=== PATIENT | male | born 2000 | race Caucasian/White ===

== ENCOUNTER 2019-07-21 06:56 | Emergency (ER) | payer OTHER, BC ==
[~2019-07-21] VITALS: Ht 188 cm; Wt 77.1 kg
[2019-07-21] MEDS ORDERED: TETANUS,DIPTH,PERTUSS P/F (BOOSTRIX) 0.5 ML VIAL IM ONE (07:15)
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
[2019-07-21] MEDS ORDERED: ACETAMINOPHEN 500 MG TAB (TYLENOL) PO ONE (08:00)
[2019-07-21] MEDS ORDERED: AMOX500C2 PO (08:13)
[2019-07-21] MEDS ORDERED: TRAM-42 PO (08:13)
[2019-07-21] MEDS ORDERED: CYCL10TA9 PO (08:13)
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
[2019-07-21 08:33] VITALS: BP 132/82
== END 2019-07-21 08:33 | disposition home or self-care (01) ==
LOC: ER 07:01
DX: T23.031A Burn of unspecified degree of multiple right fingers (nail), not including thumb, initial encounter (principal); M62.830 Muscle spasm of back; T31.0 Burns involving less than 10% of body surface; R40.2142 Coma scale, eyes open, spontaneous, at arrival to emergency department; R40.2252 Coma scale, best verbal response, oriented, at arrival to emergency department; R40.2362 Coma scale, best motor response, obeys commands, at arrival to emergency department; V48.5XXA Car driver injured in noncollision transport accident in traffic accident, initial encounter
CPT/HCPCS: 70450; 72125; 90471; 90715

== ENCOUNTER → 2022-02-17 | Outpatient (CLI) | payer SELFPAY ==
[~2022-02-17] MED LIST: AMOX500C2 PO; CYCL10TA25 PO; TRAM-42 PO
[2022-02-17 17:31] LABS: SEMEN VOLUME 2.8 ML (1.5-5.0)
== END ==
LOC: LAB 16:04
PROVIDERS: ATTEND Obstetrics & Gynecology
DX: N46.9 Male infertility, unspecified (principal)
CPT/HCPCS: 89320

== ENCOUNTER 2022-12-19 17:33 | Emergency (ER) | payer OTHER ==
[~2022-12-19] VITALS: Ht 190.5 cm; Wt 95.2 kg
[2022-12-19] MEDS ORDERED: HYDR28.480 TP (18:42)
[2022-12-19] MEDS ORDERED: CETI10TA17 PO (18:42)
--- NOTE | 2022-12-19 18:42 | ED Integumentary General ---
General Chief Complaint: Skin/Wound Problems Stated Complaint: RASH ON ARM Nursing Triage Note: PT AMB TO FT 1 WITH CC OF RASH X 7 DAYS. PT STATES WAS SEEN IN [place] "THE OTHER DAY" FOR URI. PT STATES "THEY DIDNT LOOK AT THE RASH". PT REPORTS DOES HAVE LOTS OF ALLERGIES. Source: patient Exam Limitations: no limitations History of Present Illness Date Seen by Provider: Dec 19, 2022 Time Seen by Provider: 18:40 Initial Comments Patient is a 21-year-old male who presents to the emergency department for evaluation of a rash that has been present for 7 days. Patient states he was seen yesterday in another ER for URI symptoms but they "did not look at the rash". Patient reports lots of allergies but is unable to provide any specific examples. States does itch. He has not taken any medications. Denies any new detergents, lotions, soaps, or other known possible allergens. Allergies and Home Medications Allergies Coded Allergies: No Known Drug Allergies (Unverified , 07/21/19) Patient Home Medication List Home Medication List Reviewed: Yes Amoxicillin (Amoxicillin) 500 Mg Capsule, 500 MG PO BID Prescribed by: TOAN JUAN on 07/21/19812 Cetirizine HCl (Cetirizine HCl) 10 Mg Tablet, 10 MG PO BID Prescribed by: Roland Phan on 12/19/221841 Cyclobenzaprine HCl (Cyclobenzaprine HCl) 10 Mg Tablet, 10 MG PO Q8H PRN for SPASMS Prescribed by: TOAN JUAN on 07/21/19812 Hydrocortisone/Aloe Vera (Hydrocortisone Plus 1% Cream) 1 % Cream..g., 28.4 GM TP BID Prescribed by: Roland Phan on 12/19/221841 Tramadol HCl (Ultram) 50 Mg Tablet, 50 MG PO Q6H PRN for BREAKTHROUGH PAIN Prescribed by: TOAN JUAN on 07/21/19812 Review of Systems Review of Systems Constitutional: no symptoms reported EENTM: no symptoms reported Respiratory: no symptoms reported Cardiovascular: no symptoms reported Gastrointestinal: no symptoms reported Genitourinary: no symptoms reported Musculoskeletal: no symptoms reported Skin: no symptoms reported Psychiatric/Neurological: No Symptoms Reported Endocrine: No Symptoms Reported Hematologic/Lymphatic: No Symptoms Reported Past Vfldeyr-Ohuylm-Mlcieu Hx Patient Social History Tobacco Use?: No Substance use?: No Alcohol Use?: Yes Alcohol type: Other Alcohol Frequency: Once in a while Seasonal Allergies Seasonal Allergies: No Past Medical History Surgeries: No Respiratory: No Cardiac: No Neurological: No Genitourinary: No Gastrointestinal: No Musculoskeletal: No Endocrine: No HEENT: No Cancer: No Psychosocial: No Integumentary: No Blood Disorders: No Physical Exam Vital Signs Vital Signs - First Documented 12/19/22 18:26 Temp 37.2 Pulse 72 Resp 20 B/P (MAP) 132/79 (96) Pulse Ox 100 O2 Delivery Room Air Capillary Refill : Less Than 3 Seconds General Appearance: WD/WN, no apparent distress HEENT: PERRL/EOMI, normal ENT inspection, TMs normal, pharynx normal Neck: non-tender, full range of motion, supple, normal inspection Cardiovascular: regular rate, rhythm Respiratory: chest non-tender, lungs clear, normal breath sounds, no respiratory distress, no accessory muscle use Gastrointestinal: normal bowel sounds, non tender, soft Extremities: normal range of motion, non-tender, normal inspection Neurologic/Psychiatric: no motor/sensory deficits, alert, normal mood/affect, oriented x 3 Skin: warm/dry, rash Progress/Results/Core Measures Results/Orders Vital Signs/I&O 12/19/22 12/19/22 18:26 18:51 Temp 37.2 Pulse 72 72 Resp 20 20 B/P (MAP) 132/79 (96) 132/79 Pulse Ox 100 100 O2 Delivery Room Air Room Air Blood Pressure Mean: 96 Progress Progress Note : Progress Note Patient is nontoxic and well-hydrated on exam. Vital signs are reassuring. Erythematous flat rash noted to the left forearm and right elbow. Rash is blanchable. No indication for further evaluation or diagnostic studies at this time. Patient will be discharged home with prescriptions for oral antihistamine and topical steroids. Follow-up with PCP. Return precautions for urgent symptomology discussed. Patient verbalized understanding. Departure Impression Primary Impression: Pruritic rash Disposition: HOME, SELF-CARE Condition: Stable Departure-Patient Inst. Decision time for Depature: 18:40 Referrals: CRISTAL BENNETT MD (PCP/Family) Primary Care Physician Patient Instructions: Skin Rash ED Scripts Hydrocortisone/Aloe Vera (Hydrocortisone Plus 1% Cream) 1 % Cream..g. 28.4 GM TP BID for 5 Days, #1 EA 0 Refills Prov: ROLAND PHAN APRN 12/19/22 Cetirizine HCl (Cetirizine HCl) 10 Mg Tablet 10 MG PO BID for 5 Days, #10 TAB 0 Refills Prov: ROLAND PHAN APRN 12/19/22 ROLAND PHAN APRN Dec 19, 2022 18:42
[2022-12-19 18:51] VITALS: BP 132/79
== END 2022-12-19 18:51 | disposition home or self-care (01) ==
LOC: EDUNIT# 17:33 → ER 17:35
DX: L29.9 Pruritus, unspecified (principal)
CPT/HCPCS: 99281